=== PATIENT | female | born 1945 | race Caucasian/White ===

== ENCOUNTER → 2025-05-04 | Outpatient (REF) | payer MEDICARE | LOC: US 13:53 | PROVIDERS: ATTEND Specialist/Technologist, Other Surgical Technologist | DX: E04.1 Nontoxic single thyroid nodule (principal) | CPT/HCPCS: 76536 ==

== ENCOUNTER → 2025-06-07 | Outpatient (REF) | payer MEDICARE | LOC: US 08:55 | PROVIDERS: ATTEND Specialist/Technologist, Other Surgical Technologist | DX: R22.1 Localized swelling, mass and lump, neck (principal) | CPT/HCPCS: 76536 ==